=== PATIENT | female | born 1945 | race Caucasian/White ===

== ENCOUNTER 2021-02-22 06:24 | Inpatient (IN) | payer OTHER ==
[2021-02-22] VITALS (9 sets, daily range): BP systolic 103–128; BP diastolic 44–94
[~2021-02-22] VITALS: Ht 165.1 cm; Wt 96.3 kg
[~2021-02-22 06:24] MED LIST: ASPI1TAB20 PO; CALC667C5 PO; CHOL20007 OR; LORA10TA6 PO; LOSA-69 PO; MULT1TAB95 PO; OMEGCAP2 OR; SIMV-8 PO; TIMO0.5S66 OP
[2021-02-22] MEDS ORDERED: EPINEPHrine HCL 1 MG/1 ML AMP ONE (06:47)
[2021-02-22] MEDS ORDERED: TRANEXAMIC ACID 20 ML ONE (06:47)
[2021-02-22] MEDS: VANCOMYCIN HCL 1000 MG VL ONE ×2 (06:48→10:20)
[2021-02-22] MEDS ORDERED: ceFAZolin 1GM/50ML 100 ML IV ONE ×2 (07:13→13:58)
[2021-02-22] MEDS ORDERED: TETRACAINE 1% INJ 2 ML VIAL IJ ONE (07:16)
[2021-02-22] MEDS ORDERED: MORPHINE SULF PF 2 MG/2 ML SYRG ONE (07:36)
[2021-02-22] MEDS ORDERED: fentaNYL CITRATE 100 MCG/2 ML VL ONE (07:36)
[2021-02-22] MEDS ORDERED: MIDAZOLAM HCL 2MG/2ML 2ml VIAL (1mg/ml) ONE ×2 (07:37→07:40)
[2021-02-22] MEDS ORDERED: DexAMETHasone SOD PHOS 10MG/1ML VIAL INJ ONE (07:40)
[2021-02-22] MEDS ORDERED: PROPOFOL 10 MG/ML 20 ML IV ONE (07:40)
[2021-02-22] MEDS ORDERED: HYDROmorphone HCL 2 MG/ML VL IV PRN ×2 (08:30→11:30)
[2021-02-22] MEDS ORDERED: ePHEDrine SULFATE 50 MG/ML AMP IV PRN (08:30)
[2021-02-22] MEDS ORDERED: NALBUPHINE HCL 10 MG/1ml INJECTION SUBCUT ONE (08:30)
[2021-02-22] MEDS ORDERED: ONDANSETRON HCL 4 MG/2 ML VIAL IV PRN ×2 (08:30→11:30)
[2021-02-22] MEDS ORDERED: DexAMETHasone SOD PHOS 10MG/1ML VIAL INJ IV PRN (08:30)
[2021-02-22] MEDS ORDERED: diphenhdrAMINE HCL 50 MG/1 ML VL IV PRN (08:30)
[2021-02-22] MEDS ORDERED: LABETALOL HCL 5 MG/ML 4ML SYRINGE IV PRN (08:30)
[2021-02-22] MEDS ORDERED: MIDAZOLAM HCL 2MG/2ML 2ml VIAL (1mg/ml) IV PRN (08:30)
[2021-02-22] MEDS ORDERED: NALOXONE HCL 0.4 MG/ML VIAL IV PRN (08:30)
[2021-02-22] MEDS ORDERED: TRANEXAMIC ACID 10 ML ONE (08:55)
[2021-02-22] MEDS ORDERED: NITROGLYCERIN 0.4 MG SL TAB SL PRN (11:15)
[2021-02-22] MEDS ORDERED: MORPHINE SULFATE INJECTION 2 MG/ML SYRG IV PRN (11:15)
[2021-02-22] MEDS ORDERED: oxyCODONE HCL 5MG TAB PO PRN ×2 (11:30)
[2021-02-22] MEDS: SODIUM CHLORIDE 0.9% 1,000 ML IV SCH ×2 (11:36→19:30)
[2021-02-22] MEDS: ACETAMINOPHEN 325 MG TAB PO SCH ×3 (12:00→23:47)
[2021-02-22] MEDS: KETOROLAC TROMETH 30 MG/ML 1ML VIAL IV SCH ×3 (12:00→23:58)
[2021-02-22 13:30] LABS: Basophils # (auto) 0 10 ^3/uL (0-0.2); Basophils % (auto) 0.2 % (0.0-2.0); Eosinophils # (auto) 0 10 ^3/uL (0-0.8); Eosinophils % (auto) 0.1 % (0.0-7.0); Hematocrit 33.9 % (36.0-46.0); Hemoglobin 11.5 g/dL (12.2-16.2); Lymphocytes # (auto) 1.2 10 ^3/uL (0.4-5.4); Lymphocytes % (auto) 8.9 % (10.0-50.0); Mean Corpuscular Hgb Conc. 33.8 g/dL (32.0-36.0); Mean Corpuscular Volume 88.7 fL (80.0-100.0); Monocytes # (auto) 0.5 10 ^3/uL (0-1.3); Monocytes % (auto) 3.6 % (0.0-12.0); Neutrophils # (auto) 11.8 10 ^3/uL (1.6-8.6); Neutrophils % (auto) 87.2 % (37.0-80.0); Red Blood Cells 3.83 10^6/uL (4.0-5.20); Red Cell Distribution Width 13.9 % (11.8-14.3); White Blood Cell 13.5 10^3/uL (4.4-10.8)
[2021-02-22] MEDS: ceFAZolin 2 GM in D5W 5% 100 ML IV SCH ×2 (14:02→22:07)
[2021-02-22] MEDS ORDERED: PATIENTS OWN MEDICATION (Simvastatin 20 MG) PO SCH (18:00)
[2021-02-22] MEDS ORDERED: SODIUM CHLORIDE 0.9% 500 ML IV ONE (20:15)
[2021-02-22] MEDS: PRAVASTATIN SODIUM 20 MG TAB PO SCH (22:08)
[2021-02-23] VITALS (15 sets, daily range): BP systolic 93–160; BP diastolic 50–85
[2021-02-23] MEDS: SODIUM CHLORIDE 0.9% 1,000 ML IV SCH ×3 (03:30→16:38)
[2021-02-23] MEDS: KETOROLAC TROMETH 30 MG/ML 1ML VIAL IV SCH ×3 (05:30→17:13)
[2021-02-23] MEDS: ACETAMINOPHEN 325 MG TAB PO SCH ×3 (05:30→17:13)
[2021-02-23 06:19] LABS: Basophils # (auto) 0 10 ^3/uL (0-0.2); Basophils % (auto) 0.1 % (0.0-2.0); Eosinophils # (auto) 0 10 ^3/uL (0-0.8); Hematocrit 26.2 % (36.0-46.0); Hemoglobin 9.3 g/dL (12.2-16.2); Lymphocytes # (auto) 1.2 10 ^3/uL (0.4-5.4); Lymphocytes % (auto) 13.9 % (10.0-50.0); Mean Corpuscular Hemoglobin 31.3 pg (28.0-32.0); Mean Corpuscular Hgb Conc. 35.5 g/dL (32.0-36.0); Mean Corpuscular Volume 88.2 fL (80.0-100.0); Monocytes # (auto) 1.2 10 ^3/uL (0-1.3); Monocytes % (auto) 14.5 % (0.0-12.0); Neutrophils % (auto) 71.5 % (37.0-80.0); Red Blood Cells 2.97 10^6/uL (4.0-5.20); Red Cell Distribution Width 14.1 % (11.8-14.3); White Blood Cell 8.5 10^3/uL (4.4-10.8)
[2021-02-23 06:50] LABS: BUN/Creatinine Ratio 32.3; Calcium 8.2 mg/dL (8.5-10.1); Potassium 4.3 mmol/L (3.5-5.1)
[2021-02-23] MEDS: TIMOLOL MAL 0.5% OPTH(EYE) SOL 5ML OP SCH (09:37)
[2021-02-23] MEDS: LOSARTAN POTASSIUM 50 MG TAB PO SCH (09:38)
[2021-02-23] MEDS: APIXABAN 2.5 MG TAB PO SCH ×2 (09:38→22:20)
[2021-02-23] MEDS: PRAVASTATIN SODIUM 20 MG TAB PO SCH (22:21)
[2021-02-24] MEDS: KETOROLAC TROMETH 30 MG/ML 1ML VIAL IV SCH ×4 (00:12→17:49)
[2021-02-24] MEDS: SODIUM CHLORIDE 0.9% 1,000 ML IV SCH ×3 (01:58→19:30)
[2021-02-24 05:37] VITALS: BP 122/85
[2021-02-24] MEDS: ACETAMINOPHEN 325 MG TAB PO SCH ×4 (06:00→17:49)
[2021-02-24 08:59] VITALS: BP 146/71
[2021-02-24 09:10] LABS: Hematocrit 23.8 % (36.0-46.0); Hemoglobin 8.2 g/dL (12.2-16.2); Mean Corpuscular Volume 89.2 fL (80.0-100.0); Red Blood Cells 2.67 10^6/uL (4.0-5.20); White Blood Cell 7.1 10^3/uL (4.4-10.8)
[2021-02-24 09:13] LABS: Basophils # (auto) 0 10 ^3/uL (0-0.2); Basophils % (auto) 0.6 % (0.0-2.0); Eosinophils # (auto) 0 10 ^3/uL (0-0.8); Eosinophils % (auto) 0.4 % (0.0-7.0); Lymphocytes # (auto) 1.5 10 ^3/uL (0.4-5.4); Lymphocytes % (auto) 21.5 % (10.0-50.0); Mean Corpuscular Hemoglobin 30.8 pg (28.0-32.0); Mean Corpuscular Hgb Conc. 34.5 g/dL (32.0-36.0); Monocytes # (auto) 0.8 10 ^3/uL (0-1.3); Neutrophils # (auto) 4.8 10 ^3/uL (1.6-8.6); Neutrophils % (auto) 66.5 % (37.0-80.0); Nucleated Red Blood Cells % 0.1 %; Red Cell Distribution Width 13.9 % (11.8-14.3)
[2021-02-24] MEDS: TIMOLOL MAL 0.5% OPTH(EYE) SOL 5ML OP SCH (09:33)
[2021-02-24] MEDS: APIXABAN 2.5 MG TAB PO SCH ×2 (09:33→21:48)
[2021-02-24] MEDS: LOSARTAN POTASSIUM 50 MG TAB PO SCH (09:33)
[2021-02-24 13:00] VITALS: BP 135/61
[2021-02-24 16:26] VITALS: BP 129/77
[2021-02-24] MEDS: PRAVASTATIN SODIUM 20 MG TAB PO SCH (21:48)
[2021-02-24 22:00] VITALS: BP 135/69
[2021-02-25] MEDS: KETOROLAC TROMETH 30 MG/ML 1ML VIAL IV SCH ×3 (00:32→12:16)
[2021-02-25] MEDS: SODIUM CHLORIDE 0.9% 1,000 ML IV SCH ×2 (03:30→11:30)
[2021-02-25 04:30] VITALS: BP 112/61
[2021-02-25 05:36] LABS: Basophils % (auto) 0.6 % (0.0-2.0); Eosinophils # (auto) 0.1 10 ^3/uL (0-0.8); Red Blood Cells 2.62 10^6/uL (4.0-5.20)
[2021-02-25 05:40] LABS: Basophils # (auto) 0 10 ^3/uL (0-0.2); Eosinophils % (auto) 0.8 % (0.0-7.0); Hematocrit 23.2 % (36.0-46.0); Lymphocytes # (auto) 1.9 10 ^3/uL (0.4-5.4); Lymphocytes % (auto) 24.2 % (10.0-50.0); Mean Corpuscular Hemoglobin 30.4 pg (28.0-32.0); Mean Corpuscular Hgb Conc. 34.4 g/dL (32.0-36.0); Mean Corpuscular Volume 88.4 fL (80.0-100.0); Neutrophils % (auto) 62.4 % (37.0-80.0); Red Cell Distribution Width 14.3 % (11.8-14.3)
[2021-02-25] MEDS: ACETAMINOPHEN 325 MG TAB PO SCH ×3 (06:00→12:00)
[2021-02-25 08:00] VITALS: BP 121/50
[2021-02-25 09:00] VITALS: BP 108/31
[2021-02-25] MEDS: LOSARTAN POTASSIUM 50 MG TAB PO SCH (11:03)
[2021-02-25] MEDS: APIXABAN 2.5 MG TAB PO SCH (11:04)
[2021-02-25] MEDS: TIMOLOL MAL 0.5% OPTH(EYE) SOL 5ML OP SCH (11:04)
[2021-02-25] MEDS ORDERED: LORATADINE 10 MG TAB PO PRN (14:00)
[2021-02-25 14:46] VITALS: BP 122/54
[2021-02-26] MEDS ORDERED: MULTIPLE VITAMIN TAB PO SCH (10:00)
[2021-02-26] MEDS ORDERED: CALCIUM ACETATE 667 MG CAP PO SCH (12:00)
== END 2021-02-25 16:56 | disposition home health service (06) | DRG 470 ==
LOC: SUR 06:24 → OVERFLOW 11:28 → TELE 11:29 → TELE-WESTW 16:05
PROVIDERS: ADMIT Orthopaedic Surgery; ATTEND Orthopaedic Surgery
PROC: 0SR906Z Replacement of Right Hip Joint with Oxidized Zirconium on Polyethylene Synthetic Substitute, Open Approach (ICD-10-PCS; principal; 2021-02-22 07:30)
DX: M16.11 Unilateral primary osteoarthritis, right hip (principal); D62 Acute posthemorrhagic anemia; E66.01 Morbid (severe) obesity due to excess calories; E78.5 Hyperlipidemia, unspecified; I10 Essential (primary) hypertension; Z20.822 Contact with and (suspected) exposure to COVID-19; Z68.35 Body mass index [BMI] 35.0-35.9, adult
CPT/HCPCS: 36415; 72170; 80048; 85025; 86850; 86900; 86901; 97110; 97116; 97163; 97530; G0378; J0171; J0690; J1100; J1885; J2250; J2704; J7060

== ENCOUNTER 2022-05-23 08:18 | Inpatient (IN) | payer OTHER ==
[~2022-05-23] VITALS: Ht 165.1 cm; Wt 101.1 kg
[2022-05-23] VITALS (10 sets, daily range): BP systolic 97–148; BP diastolic 72–99
[~2022-05-23 08:18] MED LIST changes: +ACET-1080 PO; -ASPI1TAB20 PO; +ASPI81CH59 PO; +DORZ2SOL18 OP; +EPINEPHrine HCL 1 MG/1 ML AMP ONE; +IBUP400T22 PO; +KETOROLAC TROMETH 30 MG/ML 1ML VIAL ONE; +LATA0.0020 OP; +TRANEXAMIC ACID 20 ML ONE; +VANCOMYCIN HCL 1000 MG VL ONE; +ceFAZolin 1GM/50ML 100 ML IV ONE
[2022-05-23] MEDS ORDERED: BUPIVACAINE 0.25% INJ 50ML VIAL ONE (08:54)
[2022-05-23] MEDS ORDERED: MIDAZOLAM HCL 2MG/2ML 2ml VIAL (1mg/ml) ONE (09:43)
[2022-05-23] MEDS ORDERED: fentaNYL CITRATE 100 MCG/2 ML VL ONE (09:43)
[2022-05-23] MEDS ORDERED: MORPHINE SULF PF 5 MG/10 ML VIAL ONE (09:44)
[2022-05-23] MEDS ORDERED: TETRACAINE 1% INJ 2 ML VIAL IJ ONE (09:53)
[2022-05-23] MEDS ORDERED: oxyCODONE HCL 5MG TAB PO PRN ×2 (11:30)
[2022-05-23] MEDS ORDERED: PROPOFOL 10 MG/ML 20 ML IV ONE (12:04)
[2022-05-23] MEDS ORDERED: ONDANSETRON HCL 4 MG/2 ML VIAL ONE (12:04)
[2022-05-23] MEDS ORDERED: GLYCOPYRROLATE 0.2 MG/ML 1ML VIAL ONE (12:05)
[2022-05-23] MEDS ORDERED: DexAMETHasone SOD PHOS 10MG/1ML VIAL INJ IV PRN (12:30)
[2022-05-23] MEDS ORDERED: ONDANSETRON HCL 4 MG/2 ML VIAL IV PRN ×2 (12:30)
[2022-05-23] MEDS ORDERED: NALOXONE HCL 0.4 MG/ML VIAL IV PRN (12:30)
[2022-05-23] MEDS ORDERED: NALBUPHINE HCL 10 MG/1ml INJECTION SUBCUT ONE (12:30)
[2022-05-23] MEDS ORDERED: HYDROmorphone HCL 2 MG/ML VL/or syr IV PRN (12:30)
[2022-05-23] MEDS: ceFAZolin 2 GM in D5W 5% 100 ML IV SCH ×2 (17:49→23:52)
[2022-05-23] MEDS: KETOROLAC TROMETH 30 MG/ML 1ML VIAL IV SCH ×2 (17:59→23:52)
[2022-05-23] MEDS: ACETAMINOPHEN 325 MG TAB PO SCH ×2 (17:59→23:52)
[2022-05-23] MEDS: SODIUM CHLORIDE 0.9% 1,000 ML IV SCH ×2 (19:13→19:30)
[2022-05-23] MEDS: PREGABALIN 25 MG CAP PO SCH (21:55)
[2022-05-24] VITALS (20 sets, daily range): BP systolic 82–131; BP diastolic 41–73
[2022-05-24] MEDS: SODIUM CHLORIDE 0.9% 1,000 ML IV SCH ×2 (03:30→11:30)
[2022-05-24] MEDS: ACETAMINOPHEN 325 MG TAB PO SCH ×2 (06:32→12:40)
[2022-05-24] MEDS: KETOROLAC TROMETH 30 MG/ML 1ML VIAL IV SCH ×3 (06:32→18:49)
[2022-05-24 07:04] LABS: Basophils # (auto) 0 10 ^3/uL (0-0.2); Basophils % (auto) 0.5 % (0.0-2.0); Eosinophils # (auto) 0.1 10 ^3/uL (0-0.8); Eosinophils % (auto) 0.9 % (0.0-7.0); Hematocrit 29.8 % (36.0-46.0); Hemoglobin 10.1 g/dL (12.2-16.2); Lymphocytes # (auto) 1.2 10 ^3/uL (0.4-5.4); Lymphocytes % (auto) 18.6 % (10.0-50.0); Mean Corpuscular Hemoglobin 30.7 pg (28.0-32.0); Mean Corpuscular Hgb Conc. 33.8 g/dL (32.0-36.0); Mean Corpuscular Volume 90.9 fL (80.0-100.0); Monocytes # (auto) 0.8 10 ^3/uL (0-1.3); Monocytes % (auto) 11.5 % (0.0-12.0); Neutrophils # (auto) 4.5 10 ^3/uL (1.6-8.6); Neutrophils % (auto) 68.5 % (37.0-80.0); Red Blood Cells 3.28 10^6/uL (4.0-5.20); Red Cell Distribution Width 14.1 % (11.8-14.3); White Blood Cell 6.6 10^3/uL (4.4-10.8)
[2022-05-24 07:27] LABS: BUN/Creatinine Ratio 31.1; Calcium 6.5 mg/dL (8.5-10.1)
[2022-05-24] MEDS: PREGABALIN 25 MG CAP PO SCH ×2 (09:41→22:20)
[2022-05-24] MEDS: APIXABAN 2.5 MG TAB PO SCH ×2 (09:42→22:20)
[2022-05-24] MEDS ORDERED: HYDROcodone-ACET 5/325MG TAB PO PRN (15:00)
[2022-05-25] MEDS: KETOROLAC TROMETH 30 MG/ML 1ML VIAL IV SCH ×3 (00:52→12:20)
[2022-05-25 05:00] VITALS: BP 136/73
[2022-05-25 08:00] VITALS: BP 122/50
[2022-05-25 09:00] VITALS: BP 122/50
[2022-05-25] MEDS: APIXABAN 2.5 MG TAB PO SCH (09:43)
[2022-05-25] MEDS: PREGABALIN 25 MG CAP PO SCH (09:44)
== END 2022-05-25 14:26 | disposition home or self-care (01) | DRG 470 ==
LOC: SUR 08:18 → OVERFLOW 12:32 → EAST 16:50 → TELE-EAST 18:39 → TELE-E-ADS 05-25 12:33
PROVIDERS: ADMIT Orthopaedic Surgery; ATTEND Orthopaedic Surgery
PROC: 0SRB06Z Replacement of Left Hip Joint with Oxidized Zirconium on Polyethylene Synthetic Substitute, Open Approach (ICD-10-PCS; principal; 2022-05-23 10:07)
DX: M16.12 Unilateral primary osteoarthritis, left hip (principal); E78.5 Hyperlipidemia, unspecified; Z86.718 Personal history of other venous thrombosis and embolism; Z20.822 Contact with and (suspected) exposure to COVID-19
CPT/HCPCS: 36415; 72170; 80048; 85025; 86850; 86900; 86901; 93971; 97110; 97116; 97163; C1776; G0378; J0171; J0690; J1885; J2250; J2405; J2704; J3490; J7060